=== PATIENT | male | born 1975 | race Caucasian/White ===

== ENCOUNTER 2016-09-10 19:47 | Emergency (ER) | payer SELFPAY ==
[2016-09-10 20:02] VITALS: BP 124/90
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
--- NOTE | 2016-09-11 07:36 | CR ---
Cervical spine: AP, lateral and odontoid views of the cervical spine were obtained. Slight kyphosis is seen. Minimal disc space narrowing noted at C3-C4. Other disc spaces are maintained. Minimal degenerative spurring noted within the uncovertebral joint on the right side at C5-C6. No fracture or subluxation is seen. Impression: 1. Minimal degenerative change. 2. Slight kyphosis and mild spasm is not excluded. Diagnostic code #2
== END 2016-09-10 21:10 | disposition home or self-care (01) ==
LOC: JD.ED 19:47
DX: M46.92 Unspecified inflammatory spondylopathy, cervical region (principal); F17.210 Nicotine dependence, cigarettes, uncomplicated; Z98.890 Other specified postprocedural states; Z88.6 Allergy status to analgesic agent
CPT/HCPCS: 72040; 72040-26; 99283

== ENCOUNTER 2017-10-19 10:24 | Emergency (ER) | payer SELFPAY ==
[2017-10-19 10:52] VITALS: BP 119/104
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
[2017-10-19] MEDS ORDERED: Distilled Water Ophth Irrig Soln 120 ML Bottle EYEBOTH ONE (11:29)
[2017-10-19] MEDS ORDERED: Hypromellose 0.5% Ophth Soln 15 ML Bottle EYEBOTH PRN (11:30)
--- NOTE | 2017-10-19 11:56 | CR ---
Chest: Two views of the chest were obtained. Comparison: No prior chest x-ray. Heart size and mediastinum are normal. Nodule identified within the upper right lung which is believed to be calcified compatible with granuloma. Lungs otherwise are clear. Bony structures are unremarkable. Impression: 1. Nothing acute is appreciated on two-view chest x-ray. Diagnostic code #2
--- NOTE | 2017-10-19 11:56 | CR ---
Cervical spine: AP and lateral views of the cervical spine were obtained. Comparison: Prior cervical spine study of 09/10/16. Technologist's note: Patient very uncooperative. AP view is particularly less than optimal. Kyphosis is present within the cervical spine. Vertebral body heights and disc spaces are maintained. Prevertebral soft tissues are normal. No discrete fracture or subluxation is seen. Impression: 1. Kyphosis. This is seen on prior cervical spine exam and may represent spasm versus chronic change. 2. No additional abnormality is seen on this slightly limited study. Diagnostic code #2
[2017-10-19] MEDS ORDERED: Ibuprofen 800 MG Tab PO ONE (11:58)
[2017-10-19] MEDS ORDERED: Ciprofloxacin 0.3% Ophth Soln 2.5 ML Bottle EYEBOTH SCH (13:00)
== END 2017-10-19 13:30 | disposition home or self-care (01) ==
LOC: JD.ED 10:24
DX: H10.33 Unspecified acute conjunctivitis, bilateral (principal); E03.9 Hypothyroidism, unspecified; M62.838 Other muscle spasm; F17.210 Nicotine dependence, cigarettes, uncomplicated; Z88.6 Allergy status to analgesic agent; Z88.8 Allergy status to other drugs, medicaments and biological substances
CPT/HCPCS: 36415; 71046; 72040; 80053; 80306; 81001; 83735; 84443; 85025; 99283; A9270; G0480

== ENCOUNTER 2018-03-03 22:17 | Emergency (ER) | payer SELFPAY ==
[2018-03-03 22:44] VITALS: BP 144/94
--- NOTE | 2018-03-04 00:28 | EDM.PDOC ---
ED HPI GENERAL MEDICAL PROBLEM - General Chief Complaint: Back Pain or Injury Stated Complaint: BACK PAIN Time Seen by Provider: 03/03/18 22:33 Source of Information: Reports: Patient History Limitations: Reports: No Limitations - History of Present Illness INITIAL COMMENTS - FREE TEXT/NARRATIVE: see dictation Onset: Unknown/Unsure Onset Time: 01:37 Duration: Week(s): Past Medical History - Past Health History Medical/Surgical History: Denies Medical/Surgical History - Infectious Disease History Infectious Disease History: Reports: Hepatitis C Social & Family History - Family History Family Medical History: Noncontributory - Tobacco Use Smoking Status *Q: Current Some Day Smoker Years of Tobacco use: 25 Packs/Tins Daily: 0 - Recreational Drug Use Recreational Drug Use: No ED ROS GENERAL - Review of Systems Review Of Systems: See Below ED EXAM,LOWER BACK PAIN/INJURY - Physical Exam Exam: See Below Exam Limited By: No Limitations Course - Vital Signs Last Recorded V/S: Last Vital Signs Temp 36.6 C 03/03/18 22:37 Pulse 89 03/03/18 22:37 Resp 16 03/03/18 22:37 BP 144/94 H 03/03/18 22:37 Pulse Ox 100 03/03/18 22:37 Departure - Departure Time of Disposition: 00:27 Disposition: Home, Self-Care 01 Condition: Good - Discharge Information *PRESCRIPTION DRUG MONITORING PROGRAM REVIEWED*: No *COPY OF PRESCRIPTION DRUG MONITORING REPORT IN PATIENT MARISSA: No Instructions: Cervical Sprain, [id number] Referrals: PCP,None [Primary Care Provider] - Forms: ED Department Discharge Additional Instructions: Followup with primary care provider
--- NOTE | 2018-03-04 08:37 | CR ---
Cervical spine: AP, lateral and odontoid views of the cervical spine were obtained. Comparison: No previous study. Vertebral body heights and disc spaces are maintained. Slightly abnormal cervical curvature is seen on the lateral view. Prevertebral soft tissues are normal. No subluxation or fracture is seen. Impression: 1. Slightly abnormal cervical curvature on the lateral view possibly due to muscle spasm. Please correlate. 2. No bony abnormality is seen on three-view cervical spine study. Diagnostic code #2
--- NOTE | 2018-03-05 07:30 | ER ---
REASON FOR ADMISSION: Back problems. HISTORY OF PRESENT ILLNESS: This 42-year-old man is a homeless gentleman, who has a history of psychiatric illness. Please see the electronic medical record for details concerning that. He comes in this evening, stating that he wants to get his back checked out because it has been popping every morning for the past 1 or 2 weeks. He referred that he had some densities around his kidneys and has soreness of his tailbone. He has a multitude of other complaints that do not seem to make a great deal of sense. In looking back on his chart, he has had a number of these sorts of things happen. He states he last saw a physician in August, but nurses tell me that he has a number of visits here recently. PAST MEDICAL HISTORY: See EMR. CURRENT MEDICATIONS: See EMR. ALLERGIES: See EMR. PHYSICAL EXAMINATION: GENERAL: He is awake and alert, and he is quite talkative. He is in no acute distress. VITAL SIGNS: See EMR. HEENT: He has a foul breath and quite poorly kept. Head is normocephalic. Pupils are equally round and reactive. Oropharynx, bad dentition. NECK: He has some limited range of motion to rotation as well as lateral flexion as well as flexion and extension. I did not force this, but he states that his neck has always been stiff like this. CHEST: Clear to auscultation. CARDIAC: Regular rate without murmur. ABDOMEN: Soft and nontender. EXTREMITIES: Normal pulses. No edema. BACK: He has some flattening of his cervical lordosis, but his thoracic kyphosis and lumbar lordosis appears normal. NEUROLOGIC: Muscle strength, bulk, and tone are normal bilaterally in the upper and lower extremities. Sensory examination is intact. Deep tendon reflexes are symmetrical. DIAGNOSTIC IMAGING: C-spine x-rays were obtained per the patient's request and because he has had comkplaints of neck stiffness, I do not see any evidence of acute injury, although he does have substantial arthritic changes and some straightening of his C- spine. There is evidence of possibly old injury or arthritic changes in the region of C2 and C3. IMPRESSION: Back pain (see above). PLAN: He will be discharged. He was instructed to follow up with his primary care provider. All questions were answered. He did request a copy of his x-rays, and we are attempting to comply with this request. MMODAL /[id number] ERWIN
== END 2018-03-04 00:37 | disposition home or self-care (01) ==
LOC: MERGE 22:17 → JD.ED 22:17
DX: M54.9 Dorsalgia, unspecified (principal); F17.210 Nicotine dependence, cigarettes, uncomplicated
CPT/HCPCS: 72040; 72040-26; 99283

== ENCOUNTER 2018-04-13 20:32 | Emergency (ER) | payer SELFPAY ==
[2018-04-13 20:42] VITALS: BP 124/84
--- NOTE | 2018-04-13 22:25 | EDM.PDOCBH ---
ED HPI GENERAL MEDICAL PROBLEM - General Chief Complaint: Behavioral/Psych Stated Complaint: WELLNESS CHECK Time Seen by Provider: 04/13/18 22:24 - History of Present Illness INITIAL COMMENTS - FREE TEXT/NARRATIVE: 42-year-old male brought into the emergency department by police. Her graft This patient is well-known police he is homeless. The police for a routine traffic stop and the patient ran out to the police yelling somebody strangled him he quickly calmed down however they brought him in for evaluation. By the time he arrived to the emergency department he was acting insulin self he is somewhat delusional which is baseline for him he has no suicidal thoughts or homicidal thoughts. He does not think he needs an evaluation at this time we watched him for some time and his status is unchanged - Related Data Allergies Allergy/AdvReac Type Severity Reaction Status Date / Time acetaminophen Allergy Headache Verified 10/19/17 10:53 aspirin Allergy Paralysis Verified 10/19/17 10:53 Home Meds: Home Meds . [No Known Home Meds] 10/19/17 [History] Past Medical History - Past Health History Medical/Surgical History: Denies Medical/Surgical History HEENT History: Reports: Other (See Below) Other HEENT History: patient states he had a ruptured artery in his throat Respiratory History: Reports: Pneumonia, Recurrent Musculoskeletal History: Reports: Other (See Below) Other Musculoskeletal History: Knee & Tib fib fracture Psychiatric History: Reports: Hallucinations, Schizophrenia, Other (See Below) Other Psychiatric History: delusional Oncologic (Cancer) History: Reports: Other (See Below) Other Oncologic History: patient states that he is in remission for cancer. he states they did not tell him what type of cancer. - Infectious Disease History Infectious Disease History: Reports: Hepatitis C Other Infectious Disease History: patient is unsure if he has been exposed but states "I think I was." - Past Surgical History HEENT Surgical History: Reports: Tonsillectomy Social & Family History - Family History Family Medical History: Noncontributory - Tobacco Use Smoking Status *Q: Unknown Ever Smoked - Caffeine Use Caffeine Use: Reports: None Other Caffeine Use: seldom - Recreational Drug Use Recreational Drug Use: No ED ROS GENERAL - Review of Systems Review Of Systems: See Below Constitutional: Reports: No Symptoms HEENT: Reports: No Symptoms Respiratory: Reports: No Symptoms Cardiovascular: Reports: No Symptoms Endocrine: Reports: No Symptoms GI/Abdominal: Reports: No Symptoms : Reports: No Symptoms Musculoskeletal: Reports: No Symptoms Skin: Reports: No Symptoms Neurological: Reports: No Symptoms Psychiatric: Reports: Other (He is somewhat delusional and this is baseline for him). Denies: Homicidal Ideation, Mood Lability, Suicidal Ideation Hematologic/Lymphatic: Reports: No Symptoms Immunologic: Reports: No Symptoms ED EXAM, BEHAVIORAL HEALTH - Physical Exam Exam: See Below Exam Limited By: Other (He is cooperative not combative or threatening) General Appearance: Alert, No Apparent Distress Eye Exam: Bilateral Eye: Normal Inspection, PERRL Ears: Normal External Exam, Normal Canal, Hearing Grossly Normal, Normal TMs Nose: Normal Inspection, Normal Mucosa, No Blood Throat/Mouth: Normal Inspection, Normal Lips, Normal Gums, Normal Oropharynx, Normal Voice, No Airway Compromise Head: Atraumatic, Normocephalic Neck: Normal Inspection, Supple, Non-Tender, Full Range of Motion, Other (No evidence of any sort of trauma). No: Lymphadenopathy (L), Lymphadenopathy (R) Respiratory/Chest: No Respiratory Distress, Lungs Clear, Normal Breath Sounds, No Accessory Muscle Use, Chest Non-Tender Cardiovascular: Normal Peripheral Pulses, Regular Rate, Rhythm, No Edema, No Gallop, No JVD, No Murmur, No Rub GI/Abdominal: Normal Bowel Sounds, Soft, Non-Tender, No Organomegaly, No Distention, No Abnormal Bruit, No Mass COURSE, BEHAVIORAL HEALTH COMP - Course Vital Signs: Last Vital Signs Temp Pulse 112 H 04/13/18 20:38 Resp 18 04/13/18 20:38 BP 124/84 04/13/18 20:38 Pulse Ox 100 04/13/18 20:38 Orders, Labs, Meds: Active Orders 24 hr Category Date Time Status EKG Documentation Completion [RC] STAT Care 04/13/18 22:41 Inactive Soft Tissue Neck wo Cont [CT] Stat Exams 04/13/18 22:40 Taken Laboratory Tests 04/13/18 Range/Units 22:50 Urine Opiates Screen Negative (NEGATIVE) Ur Buprenorphine Scrn Negative (NEGATIVE) Ur Oxycodone Screen Negative (NEGATIVE) Urine Methadone Screen Negative (NEGATIVE) Ur Propoxyphene Screen Negative (NEGATIVE) Ur Barbiturates Screen Negative (NEGATIVE) Ur Tricyclics Screen Negative (NEGATIVE) Ur Phencyclidine Scrn Negative (NEGATIVE) Ur Amphetamine Screen Negative (NEGATIVE) U Methamphetamines Scrn Negative (NEGATIVE) U Benzodiazepines Scrn Negative (NEGATIVE) U Cocaine Metab Screen Negative (NEGATIVE) U Marijuana (THC) Screen Negative (NEGATIVE) Medications Discontinued Medications Generic Name Dose Route Start Last Admin Trade Name Shon PRN Reason Stop Dose Admin Ibuprofen 600 mg 04/13/18 23:21 04/13/18 23:25 Motrin PO 04/13/18 23:22 600 mg ONETIME ONE Administration Discharge vs Psych Eval/Treatment:: 04/13/18 23:32 The patient was observed for a while and he is stable and at baseline he's known very well to the ER staff and he is his normal self he is known very well to the superintendent police and he is at his baseline he will be discharged home. The superintendent police brought him and will be able to check on him periodically through the night. Departure - Departure Time of Disposition: 23:32 Disposition: Home, Self-Care 01 Clinical Impression: Well adult health check - Discharge Information Referrals: PCP,None [Primary Care Provider] - Forms: ED Department Discharge Additional Instructions: Return to emergency room if any questions problems worsening symptoms - My Orders Last 24 Hours: My Active Orders 04/13/18 22:40 Soft Tissue Neck wo Cont [CT] Stat 04/13/18 22:41 EKG Documentation Completion [RC] STAT - Assessment/Plan Last 24 Hours: My Active Orders 04/13/18 22:40 Soft Tissue Neck wo Cont [CT] Stat 04/13/18 22:41 EKG Documentation Completion [RC] STAT
[2018-04-13] MEDS ORDERED: Ibuprofen 600 MG Tab PO ONE (23:21)
--- NOTE | 2018-04-15 08:45 | CT ---
CT neck Technique: Multiple axial sections were obtained from above the external auditory canals inferiorly to the lung apices. Motion artifact is seen. No intravenous contrast was utilized which diminishes details of the exam. Comparison: No previous CT exam. Findings: Visualized lung bases show no gross abnormality. No adenopathy is appreciated within the neck. Visualized sinuses are clear. Parotid and submandibular salivary glands show no gross abnormality. Bone window settings were reviewed which show kyphosis within the cervical spine which is likely positional. Abnormal alignment of the temporomandibular joints is seen. No acute bony abnormality is appreciated. Impression: 1. Widened left temporomandibular joint with mild anterior translation of the left mandibular condyle with normal alignment of the right temporomandibular joint. Uncertain as to etiology but presumably incidental and due to old mandibular trauma or positioning of the mandible. 2. No other gross abnormality is seen on CT study of the neck. Note: Details are limited due to motion as well as lack of IV contrast. Diagnostic code #2 I agree with preliminary report issued by [facility], additional note which is felt to be incidental as noted above ([facility] preliminary report dictated on 04/14/18, 1:06 AM Central Time) (code #2)
== END 2018-04-13 23:38 | disposition home or self-care (01) ==
LOC: JD.ED 20:32
DX: Z00.01 Encounter for general adult medical examination with abnormal findings (principal); F22 Delusional disorders; Z88.6 Allergy status to analgesic agent
CPT/HCPCS: 70490; 80306; 99285; A9270; 99283

== ENCOUNTER 2018-08-04 00:10 | Emergency (ER) | payer OTHER, SELFPAY ==
[2018-08-04 00:18] VITALS: BP 141/93
--- NOTE | 2018-08-04 01:09 | EDM.PDOC ---
ED HPI GENERAL MEDICAL PROBLEM - General Chief Complaint: ENT Problem Stated Complaint: THROAT PROBLEMS Time Seen by Provider: 08/04/18 00:38 Source of Information: Reports: Patient History Limitations: Reports: Altered Mental Status - History of Present Illness INITIAL COMMENTS - FREE TEXT/NARRATIVE: This is a 42-year-old male. He comes here because he is having a popping sensation in his neck and ringing in his ears. He is fairly well known to this area as being homeless and probably schizophrenic with some delusional ideation. When he talks to me he does not make sense. He does talk about popping but that he's got an ear depth about the size of the fingernail in the left side. He is also left-handed so there is no way in this world he can have arthritis, left hand or don't get arthritis. He says he had a throat CAT scan just a couple of months ago but I see no record in [facility] that he's had a throat CT scan. He talks with no difficulty he does not appear to be in mean any great distress. When I asked him if he needs a place to stay he says no when asked him if he wants something to eat he says no. He smells like campfire. Throat Pain Score (Numeric/FACES): 3 - Related Data Allergies Allergy/AdvReac Type Severity Reaction Status Date / Time aspirin Allergy Paralysis Verified 05/20/18 12:00 Home Meds: Home Meds . [No Known Home Meds] 04/25/18 [History] Past Medical History - Past Health History Medical/Surgical History: Denies Medical/Surgical History HEENT History: Reports: Other (See Below) Other HEENT History: patient states he had a ruptured artery in his throat Respiratory History: Reports: Pneumonia, Recurrent Musculoskeletal History: Reports: Other (See Below) Other Musculoskeletal History: Knee & Tib fib fracture Psychiatric History: Reports: Hallucinations, Schizophrenia Other Psychiatric History: delusional Oncologic (Cancer) History: Reports: Other (See Below) Other Oncologic History: patient states that he is in remission for cancer. he states they did not tell him what type of cancer. - Infectious Disease History Infectious Disease History: Reports: Hepatitis C Other Infectious Disease History: patient is unsure if he has been exposed but states "I think I was." - Past Surgical History HEENT Surgical History: Reports: Tonsillectomy Other Musculoskeletal Surgeries/Procedures:: states multiple surgeries on legs and knees Social & Family History - Family History Family Medical History: Noncontributory - Tobacco Use Smoking Status *Q: Light Tobacco Smoker Years of Tobacco use: 30 Packs/Tins Daily: 0.5 - Caffeine Use Caffeine Use: Reports: Coffee, Soda Other Caffeine Use: seldom ED ROS ENT - Review of Systems Review Of Systems: Unable To Obtain (I'm not really able to get a review of system from him other than his neck pops in his jaw pops and he's got cartilage hanging down from his mouth, and that he wants his neck fixed and the washers between the bones or soft and he has a purple rachid in his back so he can have arthritis.) ED EXAM, ENT - Physical Exam Exam: See Below Exam Limited By: Other (Patient is very unkempt and smells of campfire) General Appearance: Alert, WD/WN, No Apparent Distress Eye Exam: Bilateral Eye: Normal Inspection Ears: Normal External Exam, Normal Canal, Normal TMs Nose: Normal Inspection Mouth/Throat: Other (Teeth in poor repair, throat appears to be normal, I do not see any cartilage hanging down from the top of his mouth) Head: Normocephalic Neck: Other (Patient is not willing for me to palpate his neck or his TMJ, yet he says they pop all the time) Respiratory/Chest: Other (Patient is not willing to let me listen to his heart or his lungs) Back: Other (He seems to move freely) Extremities: Other (He moves his arms and legs with no difficulty and walked into the ER) Neurological: Alert, Other (He seems to have flight of ideas, he uses words that I am just not familiar with) Psychiatric: Other (He has a flat affect and he is not belligerent but he does appear to be uncooperative with the examination) Skin: Warm Course - Vital Signs Last Recorded V/S: Last Vital Signs Temp 96.9 F 08/04/18 00:14 Pulse 103 H 08/04/18 00:14 Resp 17 08/04/18 00:14 BP 141/93 H 08/04/18 00:14 Pulse Ox 96 08/04/18 00:14 - Re-Assessments/Exams Free Text/Narrative Re-Assessment/Exam: 08/04/18 01:33 I reviewed the patient's charts and x-rays that he's had here at [facility] and there is no record of him ever having a CT of his throat and neck. She has had an x-ray back in September 2016 that showed some degenerative changes and his last blood work was October 2017 suggested he is low on thyroid. When I talk to the patient about this he insists that about 2 months ago he had a CT scan here but I can't seem to find a record. He suggested that perhaps I was not smart and that if I was his physician then it be a good idea for me to get neck x- rays and also blood work now. He says that he has a chemical that's abnormal in his blood work that is concerning for him and he wants blood work done. I explained to him that I did not see any indication that he needed x-ray of his neck or that he needed blood work done. He suggested to his friend in the room noted be a good idea if I went ahead and got the x-ray since his neck was popping and he had cartilage in the back of his neck that was sticking out and he had inflammation of the spinal cord. I told him that perhaps he needed to come when there was a different physician here since I did not feel this was needful this time and that perhaps another physician would. He stated that the other physician he saw wouldn't do the x-rays either. Then he indicated that I had to get blood work because usually concerned about this chemical and I said I thought it was thyroid but he says no one was in thyroid was a chemical that was dangerous and he needed to know what was. When I said perhaps this was done down at [place] and not here since I have no record of it he said no it was done here but it was confirmed in [place] and then I came back here and was confirmed again. At that point time I suggested he come back tomorrow when there is a new physician and perhaps they could help him. 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 He then said about giving me his FBI number of [phone]. After that I left the room and he grabbed his coat and he walked out of the room mumbling saying that it be receiving call and that my job was only for another 4 years and if I was a license physician no longer be needed here. He did not cause any trouble walking out to the lobby and then I watched him go through the double doors to the outside. Departure - Departure Time of Disposition: 01:39 Disposition: Home, Self-Care 01 Condition: Poor Clinical Impression: Cervical arthritis, TMJ arthropathy Schizophrenia Qualifiers: Schizophrenia type: paranoid schizophrenia Qualified Code(s): F20.0 - Paranoid schizophrenia - Discharge Information *PRESCRIPTION DRUG MONITORING PROGRAM REVIEWED*: Not Applicable *COPY OF PRESCRIPTION DRUG MONITORING REPORT IN PATIENT MARISSA: Not Applicable Referrals: PCP,None [Primary Care Provider] - Forms: ED Department Discharge Additional Instructions: Please feel free to return to the ER as needed, please note that I reviewed your records that are found in the ER database and I found no record of any chemical that was abnormal other than your thyroid, I did not find a CAT scan of your neck though your x-ray of your neck from September 2016 suggested some arthritic changes or degenerative changes, if you feel you need further workup please return at a later date since I do not feel at this time that you need an additional x-ray or blood work based upon my review of your records and listening to your history and chief complaint.
== END 2018-08-04 01:32 | disposition home or self-care (01) ==
LOC: JD.ED 00:10
DX: M46.92 Unspecified inflammatory spondylopathy, cervical region (principal); M26.69 Other specified disorders of temporomandibular joint; F20.0 Paranoid schizophrenia; F17.210 Nicotine dependence, cigarettes, uncomplicated; Z98.890 Other specified postprocedural states; Z88.6 Allergy status to analgesic agent
CPT/HCPCS: 99282

== ENCOUNTER 2018-12-05 18:39 | Emergency (ER) | payer SELFPAY ==
[2018-12-05 18:54] VITALS: BP 142/102
--- NOTE | 2018-12-05 19:41 | EDM.PDOC ---
ED HPI GENERAL MEDICAL PROBLEM - General Chief Complaint: General Stated Complaint: HEAD NECK RIBS POPPING JAW IS LIKE RUBBER Time Seen by Provider: 12/05/18 19:09 Source of Information: Reports: Patient, RN Notes Reviewed History Limitations: Reports: Altered Mental Status (Tangential thinking. Suspicious.) - History of Present Illness INITIAL COMMENTS - FREE TEXT/NARRATIVE: The patient states that he has had pain to his head and neck for a few weeks, and that he feels a popping sensation in the back of his head, his ribs, and jaw. He also states that his jaw and ears feel rubbery. It is unclear if there is a history of trauma, but it is doubtful. The patient has tangential speech with derailment, jumping from subject to subject within the same sentence. The patient has a known history of schizophrenia, and it would appear that his symptoms are not well controlled. He is disheveled, and I suspect that he is not currently on any medication. The patient is suspicious, and is reluctant to answer any questions. The patient does not have a PCP. Head Pain Score (Numeric/FACES): 2 - Related Data Allergies Allergy/AdvReac Type Severity Reaction Status Date / Time aspirin Allergy Paralysis Verified 12/05/18 18:52 Home Meds: Home Meds . [No Known Home Meds] 04/25/18 [History] Past Medical History Musculoskeletal History: Reports: Fracture (right tib/fib) Psychiatric History: Reports: Schizophrenia - Past Surgical History HEENT Surgical History: Reports: Tonsillectomy Musculoskeletal Surgical History: Reports: ORIF (right tib/fib fx) Social & Family History - Family History Family Medical History: Noncontributory - Tobacco Use Smoking Status *Q: Current Every Day Smoker Years of Tobacco use: 30 Packs/Tins Daily: 0.5 - Caffeine Use Caffeine Use: Reports: None Other Caffeine Use: seldom - Alcohol Use Alcohol Use History: Yes Alcohol Use Frequency: Rarely - Recreational Drug Use Recreational Drug Use: No - Living Situation & Occupation Living situation: Reports: Alone Occupation: Unemployed ED ROS GENERAL - Review of Systems Review Of Systems: ROS reveals no pertinent complaints other than HPI. ED EXAM, GENERAL - Physical Exam Exam: See Below Exam Limited By: Uncooperative (Pulls away with all attempts to examine) General Appearance: Alert, WD/WN, No Apparent Distress Eye Exam: Bilateral Eye: EOMI, Normal Inspection Ears: Normal External Exam, Normal Canal, Hearing Grossly Normal, Normal TMs Nose: Normal Inspection, Normal Mucosa, No Blood Throat/Mouth: Normal Inspection, Normal Lips, Normal Oropharynx, Normal Voice, No Airway Compromise Head: Atraumatic, Normocephalic Neck: Normal Inspection, Supple, Non-Tender, Full Range of Motion, Tender Lateral (muscle spasm on right posterior neck). No: Lymphadenopathy (L), Lymphadenopathy (R) Respiratory/Chest: No Respiratory Distress, Lungs Clear, Normal Breath Sounds, No Accessory Muscle Use Cardiovascular: Normal Peripheral Pulses, Regular Rate, Rhythm, No Edema, No Gallop, No JVD, No Murmur, No Rub Peripheral Pulses: 4+: Radial (L), Radial (R) GI/Abdominal: Normal Bowel Sounds, Soft, Non-Tender, No Organomegaly, No Distention, No Abnormal Bruit, No Mass (Male) Exam: Deferred Rectal (Males) Exam: Deferred Back Exam: Normal Inspection, Full Range of Motion, NT Extremities: Normal Inspection, Normal Range of Motion, No Pedal Edema, Normal Capillary Refill Neurological: Alert, No Motor/Sensory Deficits Psychiatric: Other (As per the HPI) Skin Exam: Warm, Dry, Intact, Normal Color, No Rash Course - Vital Signs Last Recorded V/S: Last Vital Signs Temp 36.4 C 12/05/18 18:49 Pulse 110 H 12/05/18 18:49 Resp 16 12/05/18 18:49 BP 142/102 H 12/05/18 18:49 Pulse Ox 97 12/05/18 18:49 - Re-Assessments/Exams Free Text/Narrative Re-Assessment/Exam: 12/05/18 19:37 The patient's complaints appear to be related to his untreated schizophrenia. The may have a muscle spasm to his posterior right neck, but I found no other abnormalities on physical exam. I offered to prescribe a muscle relaxant but the patient responded "I'll take a pass". I will refer him to a PCP who could order a MRI if they felt it was indicated. Departure - Departure Time of Disposition: 19:38 Disposition: Home, Self-Care 01 Condition: Good Clinical Impression: Neck pain - Discharge Information *PRESCRIPTION DRUG MONITORING PROGRAM REVIEWED*: Not Applicable *COPY OF PRESCRIPTION DRUG MONITORING REPORT IN PATIENT MARISSA: Not Applicable Instructions: Musculoskeletal Pain Referrals: PCP,None [Primary Care Provider] - Barbara Hall MD [Physician] - Forms: ED Department Discharge Additional Instructions: You were seen in the emergency room for pain to your head and neck with a popping sensation in the back of your head, ribs, and jaw, along with your jaw and ears feeling rubbery, for the past several weeks. Based on your history and physical examination, you may have a muscle spasm in the back of your neck. No other abnormalities were found on physical exam. An offer of starting you on a muscle relaxant was made, but declined. We recommend that you follow-up with Dr. Barbara Hall is a primary care physician, for further evaluation. If any other problems, please do not hesitate to return to the ER.
== END 2018-12-05 19:47 | disposition home or self-care (01) ==
LOC: JD.ED 18:39
DX: M54.2 Cervicalgia (principal); F17.210 Nicotine dependence, cigarettes, uncomplicated; Z88.6 Allergy status to analgesic agent
CPT/HCPCS: 99282; 99283

== ENCOUNTER 2019-10-02 17:29 | Emergency (ER) | payer SELFPAY ==
[2019-10-02 17:39] VITALS: BP 165/89; PULSE 93
--- NOTE | 2019-10-02 18:07 | EDM.PDOC ---
ED HPI GENERAL MEDICAL PROBLEM - General Chief Complaint: General Stated Complaint: CHEST/BACK PAIN Time Seen by Provider: 10/02/19 17:36 Source of Information: Reports: Patient History Limitations: Reports: No Limitations - History of Present Illness INITIAL COMMENTS - FREE TEXT/NARRATIVE: The patient presents with chest pain. This has been going on for a few days. The pain comes and goes. He has no fever, chills, cough, abdominal pain, nausea or vomiting. He does say that his stomach was growling a few times these past few days. He also has some jaw pain and he has known TMJ. Onset: Gradual Duration: Day(s): Location: Reports: Chest Quality: Reports: Burning Severity: Mild Improves with: Reports: None Worsens with: Reports: None Associated Symptoms: Reports: Chest Pain. Denies: Confusion, Cough, Fever/ Chills, Headaches, Nausea/Vomiting, Shortness of Breath - Related Data Allergies Allergy/AdvReac Type Severity Reaction Status Date / Time aspirin Allergy Paralysis Verified 10/02/19 17:39 Home Meds: Home Meds . [No Known Home Meds] 04/25/18 [History] Past Medical History - Past Health History Medical/Surgical History: Denies Medical/Surgical History HEENT History: Reports: Other (See Below) Other HEENT History: patient states he had a ruptured artery in his throat Cardiovascular History: Reports: None Respiratory History: Reports: Pneumonia, Recurrent Gastrointestinal History: Reports: None Genitourinary History: Reports: None Musculoskeletal History: Reports: Back Pain, Chronic, Fracture, Other (See Below ) Other Musculoskeletal History: Neck Fx Neurological History: Reports: Cerebral Aneurysms, Other (See Below) Psychiatric History: Reports: Schizophrenia Other Psychiatric History: delusional Endocrine/Metabolic History: Reports: None Hematologic History: Reports: None Immunologic History: Reports: None Oncologic (Cancer) History: Reports: Other (See Below) Other Oncologic History: patient states that he is in remission for cancer. he states they did not tell him what type of cancer. Dermatologic History: Reports: None - Infectious Disease History Infectious Disease History: Reports: Hepatitis C Other Infectious Disease History: patient is unsure if he has been exposed but states "I think I was." - Past Surgical History HEENT Surgical History: Reports: Tonsillectomy Musculoskeletal Surgical History: Reports: Arthroscopic Knee, ORIF Social & Family History - Family History Family Medical History: Noncontributory - Tobacco Use Smoking Status *Q: Current Every Day Smoker Years of Tobacco use: 25 Packs/Tins Daily: 0.5 - Caffeine Use Caffeine Use: Reports: Soda Other Caffeine Use: seldom - Recreational Drug Use Recreational Drug Use: No - Living Situation & Occupation Living situation: Reports: Alone (Homeless) Occupation: Unemployed ED ROS GENERAL - Review of Systems Review Of Systems: See Below Constitutional: Reports: No Symptoms HEENT: Reports: Other (right jaw pain) Respiratory: Reports: No Symptoms Cardiovascular: Reports: Chest Pain Endocrine: Reports: No Symptoms GI/Abdominal: Reports: No Symptoms : Reports: No Symptoms Musculoskeletal: Reports: No Symptoms ED EXAM, GENERAL - Physical Exam Exam: See Below Exam Limited By: No Limitations General Appearance: Alert, No Apparent Distress, Other (The patient smells strongly of camfire) Ears: Normal External Exam Nose: Normal Inspection Head: Atraumatic, Normocephalic Neck: Normal Inspection Respiratory/Chest: No Respiratory Distress, Lungs Clear, Normal Breath Sounds Cardiovascular: Regular Rate, Rhythm, No Edema, No Murmur GI/Abdominal: Soft, Non-Tender, No Organomegaly, No Mass Back Exam: Normal Inspection Extremities: Normal Inspection Neurological: Alert, Oriented, No Motor/Sensory Deficits Course - Vital Signs Last Recorded V/S: Last Vital Signs Temp 97.9 F 10/02/19 17:35 Pulse 93 10/02/19 17:35 Resp 16 10/02/19 17:35 BP 165/89 H 10/02/19 17:35 Pulse Ox 96 10/02/19 17:35 - Orders/Labs/Meds Orders: Active Orders 24 hr Category Date Time Status EKG Documentation Completion [RC] ASDIRECTED Care 10/02/19 17:55 Active Ibuprofen [Motrin] Med 10/02/19 18:52 Once 600 mg PO ONETIME ONE EKG 12 Lead [EK] Stat Ther 10/02/19 17:55 Ordered Medication Orders Ibuprofen (Motrin) 600 mg PO ONETIME ONE Stop: 10/02/19 18:53 Meds: Medications Generic Name Dose Route Start Last Admin Trade Name Freq PRN Reason Stop Dose Admin Ibuprofen 600 mg 10/02/19 18:52 Motrin PO 10/02/19 18:53 ONETIME ONE - Re-Assessments/Exams Free Text/Narrative Re-Assessment/Exam: 10/02/19 18:07 I have ordered an EKG. Departure - Departure Time of Disposition: 18:55 Disposition: Home, Self-Care 01 Condition: Good Clinical Impression: TMJ (temporomandibular joint syndrome), Atypical chest pain - Discharge Information *PRESCRIPTION DRUG MONITORING PROGRAM REVIEWED*: Not Applicable *COPY OF PRESCRIPTION DRUG MONITORING REPORT IN PATIENT MARISSA: Not Applicable Referrals: PCP,None [Primary Care Provider] - Forms: ED Department Discharge Additional Instructions: Follow up with a dentist for the TMJ. Take motrin or tylenol for the pain. Please return if you are worse. Sepsis Event Note - Evaluation Sepsis Screening Result: No Definite Risk - Focused Exam Vital Signs: Vital Signs Temp Pulse Resp BP Pulse Ox 10/02/19 17:35 97.9 F 93 16 165/89 H 96 Date Exam was Performed: 10/02/19 Time Exam was Performed: 18:53 - My Orders Last 24 Hours: My Active Orders 10/02/19 17:55 EKG Documentation Completion [RC] ASDIRECTED EKG 12 Lead [EK] Stat 10/02/19 18:52 Ibuprofen [Motrin] 600 mg PO ONETIME ONE - Assessment/Plan Last 24 Hours: My Active Orders 10/02/19 17:55 EKG Documentation Completion [RC] ASDIRECTED EKG 12 Lead [EK] Stat 10/02/19 18:52 Ibuprofen [Motrin] 600 mg PO ONETIME ONE
[2019-10-02] MEDS ORDERED: Ibuprofen 600 MG Tab PO ONE (18:52)
== END 2019-10-02 19:10 | disposition home or self-care (01) ==
LOC: JD.ED 17:29
DX: R07.89 Other chest pain (principal); M26.629 Arthralgia of temporomandibular joint, unspecified side; F17.210 Nicotine dependence, cigarettes, uncomplicated
CPT/HCPCS: 93005; 99284; A9270; 93010; 99283

== ENCOUNTER 2019-10-05 19:24 | Emergency (ER) | payer SELFPAY ==
[2019-10-05 19:41] VITALS: BP 144/95; PULSE 96
--- NOTE | 2019-10-05 19:41 | EDM.PDOC ---
ED HPI GENERAL MEDICAL PROBLEM - General Chief Complaint: ENT Problem Stated Complaint: neck jaw and head pain Time Seen by Provider: 10/05/19 19:41 - History of Present Illness INITIAL COMMENTS - FREE TEXT/NARRATIVE: 43-year-old male presents the emergency room with right upper dental pain. He had a tooth fall apart he has had a lot of drainage out of the area since then. This occurred yesterday. Patient is having problems with bad teeth. Patient denies any other complaints at this time he is not having any breathing difficulty shortness of breath no nausea or vomiting. He is not aware of any fevers or chills. Jaw Pain Score (Numeric/FACES): 8 - Related Data Allergies Allergy/AdvReac Type Severity Reaction Status Date / Time aspirin Allergy Paralysis Verified 10/05/19 19:41 Home Meds: Home Meds Amoxicillin 500 mg PO Q8H #30 tablet 10/05/19 [Rx] Past Medical History - Past Health History Medical/Surgical History: Denies Medical/Surgical History HEENT History: Reports: Other (See Below) Other HEENT History: patient states he had a ruptured artery in his throat Cardiovascular History: Reports: None Respiratory History: Reports: Pneumonia, Recurrent Gastrointestinal History: Reports: None Genitourinary History: Reports: None Musculoskeletal History: Reports: Back Pain, Chronic, Fracture, Other (See Below ) Other Musculoskeletal History: Neck Fx Neurological History: Reports: Cerebral Aneurysms, Other (See Below) Psychiatric History: Reports: Schizophrenia Other Psychiatric History: delusional Endocrine/Metabolic History: Reports: None Hematologic History: Reports: None Immunologic History: Reports: None Oncologic (Cancer) History: Reports: Other (See Below) Other Oncologic History: patient states that he is in remission for cancer. he states they did not tell him what type of cancer. Dermatologic History: Reports: None - Infectious Disease History Infectious Disease History: Reports: Hepatitis C Other Infectious Disease History: patient is unsure if he has been exposed but states "I think I was." - Past Surgical History HEENT Surgical History: Reports: Tonsillectomy Musculoskeletal Surgical History: Reports: Arthroscopic Knee, ORIF Social & Family History - Family History Family Medical History: Noncontributory - Caffeine Use Caffeine Use: Reports: Soda Other Caffeine Use: seldom - Living Situation & Occupation Living situation: Reports: Alone (Homeless) Occupation: Unemployed ED ROS ENT - Review of Systems Review Of Systems: See Below Constitutional: Reports: No Symptoms. Denies: Fever, Chills HEENT: Reports: Dental Pain Respiratory: Reports: No Symptoms Cardiovascular: Reports: No Symptoms GI/Abdominal: Reports: No Symptoms ED EXAM, ENT - Physical Exam Exam: See Below Exam Limited By: No Limitations General Appearance: Alert, No Apparent Distress Eye Exam: Bilateral Eye: Normal Inspection Ears: Normal External Exam Nose: Normal Inspection, Normal Mucousa Mouth/Throat: Normal Lips, Normal Oropharynx, Dental Abcess (Right upper gumline is erythematous with some drainage nothing practical to drain at this time.), Dental Pain Head: Atraumatic, Normocephalic Neck: Normal Inspection, Supple, Non-Tender, Full Range of Motion. No: Lymphadenopathy (L), Lymphadenopathy (R) Respiratory/Chest: No Respiratory Distress, Lungs Clear, Normal Breath Sounds Cardiovascular: Regular Rate, Rhythm, No Edema, No Murmur Course - Vital Signs Last Recorded V/S: Last Vital Signs Temp 36.8 C 10/05/19 19:37 Pulse 96 10/05/19 19:37 Resp 19 10/05/19 19:37 BP 144/95 H 10/05/19 19:37 Pulse Ox 95 10/05/19 19:37 Departure - Departure Time of Disposition: 20:08 Disposition: Home, Self-Care 01 Clinical Impression: Dental infection - Discharge Information Referrals: PCP,None [Primary Care Provider] - Forms: ED Department Discharge Additional Instructions: Return to the emergency room with any questions problems or worsening symptoms. Take the antibiotics, the amoxicillin 1 tablet every 8 hours until all gone. salon supervisor some [id number] ibuprofen intake 2-3 3 times daily with food. Follow-up with a dentist as soon as you can Sepsis Event Note - Evaluation Sepsis Screening Result: Possible Sepsis Risk - Focused Exam Vital Signs: Vital Signs Temp Pulse Resp BP Pulse Ox 10/05/19 19:37 36.8 C 96 19 144/95 H 95 Date Exam was Performed: 10/05/19 Time Exam was Performed: 20:03
[2019-10-05] MEDS ORDERED: Ibuprofen 600 MG Tab PO ONE (20:04)
[2019-10-05] MEDS ORDERED: Amoxicillin 500 MG Cap PO ONE (20:04)
== END 2019-10-05 20:21 | disposition home or self-care (01) ==
LOC: JD.ED 19:24
DX: K04.7 Periapical abscess without sinus (principal); Z88.6 Allergy status to analgesic agent
CPT/HCPCS: 99282; A9270

== ENCOUNTER 2019-10-09 21:01 | Emergency (ER) | payer SELFPAY ==
[2019-10-09 22:17] VITALS: BP 145/95; PULSE 74
--- NOTE | 2019-10-09 23:01 | EDM.PDOC ---
ED HPI GENERAL MEDICAL PROBLEM - General Chief Complaint: ENT Problem Time Seen by Provider: 10/09/19 22:40 Source of Information: Reports: Patient History Limitations: Reports: Uncooperative (Tangential thinking and argumentative) - History of Present Illness INITIAL COMMENTS - FREE TEXT/NARRATIVE: Mr. Van is a 43-year-old male with a past medical history significant for untreated schizophrenia. He has been evaluated in this ED on numerous occasions , usually for the same complaint of his neck popping when he turns his head. Sometimes he feels it on the left, sometimes on the right. Medical records indicate that he was seen in this ED most recently for that complaint on 2019, and diagnosed with TMJ. He was then seen again in this ED on 10/05/2019, this time complaining of upper right dental pain. He was prescribed amoxicillin , and instructed to take [id number] ibuprofen and follow-up with a dentist. The patient now returns to the ED stating that he continues to have upper right dental pain, but that the pain extends to most of the right side of his face, and back to the right side of his neck. He states that he has already "burned through" 50 ibuprofen since 10/05/2019. He was vague about whether or not he is taking the antibiotic that was prescribed. He states that he will be able to make an appointment to see a dentist tomorrow, 10/10/2019. Here in the ED, the patient is found to be mildly hypertensive, otherwise hemodynamically stable, afebrile, saturating 96 to 99% on room air. The patient does not have a PCP. Right Jaw Pain Score (Numeric/FACES): 7 - Related Data Allergies Allergy/AdvReac Type Severity Reaction Status Date / Time aspirin Allergy Paralysis Verified 10/05/19 19:41 Home Meds: Home Meds Amoxicillin 500 mg PO Q8H #30 tablet 10/05/19 [Rx] Past Medical History Musculoskeletal History: Reports: Fracture (right tib/fib) Psychiatric History: Reports: Schizophrenia (untreated) - Past Surgical History HEENT Surgical History: Reports: Tonsillectomy Musculoskeletal Surgical History: Reports: ORIF (right tib/fib) Social & Family History - Family History Family Medical History: Noncontributory - Tobacco Use Smoking Status *Q: Current Every Day Smoker Years of Tobacco use: 31 Packs/Tins Daily: 0.5 Packs/Tins Daily Comment: Down from 1 ppd - Caffeine Use Caffeine Use: Reports: Soda Other Caffeine Use: seldom - Alcohol Use Alcohol Use History: Yes Alcohol Use Frequency: Rarely - Recreational Drug Use Recreational Drug Use: Yes Drug Use in Last 12 Months: No Recreational Drug Type: Reports: Marijuana/Hashish (last smoked around 2001?), Methamphetamine (last smoked around 2003?) - Living Situation & Occupation Living situation: Reports: Single, Alone (Homeless) Occupation: Unemployed ED ROS ENT - Review of Systems Review Of Systems: Comprehensive ROS is negative, except as noted in HPI. ED EXAM, ENT - Physical Exam Exam: See Below Exam Limited By: Uncooperative (Only allowed me to look in his mouth briefly. Very suspicious.) General Appearance: Alert, No Apparent Distress, Thin Eye Exam: Bilateral Eye: EOMI, Normal Inspection Ears: Normal External Exam, Normal Canal, Hearing Grossly Normal, Normal TMs Nose: Normal Inspection, Normal Mucousa, No Blood Mouth/Throat: Normal Lips, Normal Oropharynx, Other (Numerous teeth missing. An upper right molar is severely decayed with associated gingival swelling. No pointing noted, but my exam was limited.) Head: Atraumatic, Normocephalic Neck: Normal Inspection, Supple, Non-Tender, Full Range of Motion. No: Lymphadenopathy (L), Lymphadenopathy (R) Course - Vital Signs Last Recorded V/S: Last Vital Signs Temp 36.1 C 10/09/19 22:07 Pulse 74 10/09/19 22:07 Resp 18 10/09/19 22:07 BP 145/95 H 10/09/19 22:07 Pulse Ox 96 10/09/19 22:07 - Re-Assessments/Exams Free Text/Narrative Re-Assessment/Exam: 10/09/19 22:56 As above, the patient is complaining of dental pain, but also pain around the right side of his mouth, and extending to the right side of his neck, which is a chronic complaint of his. On examination, he does appear to have a right upper molar with advanced decay. Given his history of schizophrenia, the patient's thoughts wander, but I tried to impress upon him the need for him to take the amoxicillin that was previously prescribed, as prescribed, and follow- up with a dentist. Departure - Departure Time of Disposition: 22:57 Disposition: Home, Self-Care 01 Condition: Good Clinical Impression: Dental infection - Discharge Information *PRESCRIPTION DRUG MONITORING PROGRAM REVIEWED*: Not Applicable *COPY OF PRESCRIPTION DRUG MONITORING REPORT IN PATIENT MARISSA: Not Applicable Instructions: Dental Abscess, [id number] Referrals: PCP,None [Primary Care Provider] - Forms: ED Department Discharge Additional Instructions: You were seen in the emergency room for continued upper right dental pain, with the pain extending to the right side of your face and neck. On examination, you appear to have significant decay of an upper right molar. We recommend that you continue to take the amoxicillin that was prescribed to you on 10/05/2019. We recommend that you limit your ibuprofen intake to no more than 3 tablets ( 600 mg) 3 8 hours, with food. We strongly recommend that you follow-up with a dentist at the next available appointment. If any other problems, please do not hesitate to return to the ER. Sepsis Event Note - Evaluation Sepsis Screening Result: No Definite Risk - Focused Exam Vital Signs: Vital Signs Temp Pulse Resp BP Pulse Ox 10/09/19 22:07 36.1 C 74 18 145/95 H 96 10/09/19 21:07 36.3 C 67 19 151/106 H 99 Date Exam was Performed: 10/10/19 Time Exam was Performed: 02:16
== END 2019-10-09 23:13 | disposition home or self-care (01) ==
LOC: JD.ED 21:01
DX: K04.7 Periapical abscess without sinus (principal)
CPT/HCPCS: 99283

== ENCOUNTER 2019-10-10 04:43 | Emergency (ER) | payer SELFPAY ==
[2019-10-10 04:45] VITALS: BP 164/94; PULSE 90
--- NOTE | 2019-10-10 04:57 | EDM.PDOC ---
ED HPI GENERAL MEDICAL PROBLEM - General Chief Complaint: ENT Problem Stated Complaint: [facility] Time Seen by Provider: 10/10/19 04:43 Source of Information: Reports: Patient, Old Records (ED visit 10/09/2019) History Limitations: Reports: Uncooperative (Argumentative, tangential thinking) - History of Present Illness INITIAL COMMENTS - FREE TEXT/NARRATIVE: Mr. Van is a 43-year-old man with a past medical history significant for untreated schizophrenia. He has been evaluated in this ED on numerous occasions , usually for the same complaint of his neck popping when he turns his head. Sometimes he feels on the left, sometimes on the right. Medical records indicate that he was seen in this ED most recently for that complaint on 2019, and diagnosed with TMJ. He was then seen again in this ED on 10/05/2019, this time complaining of upper right dental pain. He was prescribed amoxicillin , and instructed to take [id number] ibuprofen and follow-up with a dentist. The patient then returned to this ED just last night, 10/09/2019, complaining of continued upper right dental pain, but that the pain extended to most of the right side of his face and back to the right side of his neck. He reported that he had already "burned through" 50 ibuprofen since 10/05/2019. He was vague about whether or not he was taking the antibiotic that was prescribed. He reported that he would be able to make an appointment to see a dentist sometime today, 10/10/2019. The evaluation was difficult. The patient was evasive, with tangential and delusional thinking, and he was argumentative. He only allowed me to look into his mouth for a few seconds, before turning his head away. In that time, however, I was able to see that the patient has generally poor dentition with numerous teeth missing, and a severely carious upper right molar with associated gingival swelling. The patient had me feel the lateral aspect of his right mandible, and shifted his mandible left and right. He felt that there was "half an inch" of motion, whereas in fact the amount of lateral motion of his mandible appeared to be normal, from my perspective. There was slight clicking, suggesting that he might have TMJ, as diagnosed on 10/02/2019. That being a chronic problem, however, I was unable to address it. There was no submandibular lymphadenopathy, but the patient did not allow me to examine his neck. I recommended that he continue to take the antibiotic that was already prescribed, judicious ibuprofen, and follow-up with a dentist at the next available appointment. I am now told that the patient left the ED without waiting for his discharge instructions. The patient now returns to the ED by EMS with the exact same claim as earlier, stating that he returned home (the patient is allowed to sleep at the group home), that he took 1.5 tablets of ibuprofen, slept for a few hours, then woke up in some sort of a mental fog. He states that he walked around for about an hour before deciding that he needed to return to the ED because his symptoms were in some way different. Here in the ED, the patient's initial BP is found to be elevated at 164/94, otherwise, he is hemodynamically stable, afebrile, saturating 99% on room air. Acquiring a history from the patient is exceedingly difficult. He is argumentative, with delusional thinking including believing that our medical records represent software that is inside of him that we can activate, and that he works for the [employer]. The conversation was repeatedly tangential, including that he wanted me to give him my medical license and NIA number. Ultimately, he stated that the only reason why he returned is because he wants pain medicine , such as ibuprofen, or something else. Right Jaw Pain Score (Numeric/FACES): 7 - Related Data Allergies Allergy/AdvReac Type Severity Reaction Status Date / Time aspirin Allergy Paralysis Verified 10/10/19 04:44 Home Meds: Home Meds Amoxicillin 500 mg PO Q8H #30 tablet 10/05/19 [Rx] Past Medical History Musculoskeletal History: Reports: Fracture (right tib/fib) Psychiatric History: Reports: Schizophrenia (untreated) - Past Surgical History HEENT Surgical History: Reports: Tonsillectomy Musculoskeletal Surgical History: Reports: ORIF (right tib/fib) Social & Family History - Family History Family Medical History: Noncontributory - Tobacco Use Smoking Status *Q: Current Every Day Smoker Years of Tobacco use: 31 Packs/Tins Daily: 0.5 Packs/Tins Daily Comment: Down from 1 ppd - Caffeine Use Caffeine Use: Reports: Soda Other Caffeine Use: seldom - Alcohol Use Alcohol Use History: Yes Alcohol Use Frequency: Rarely - Recreational Drug Use Recreational Drug Use: Yes Drug Use in Last 12 Months: No Recreational Drug Type: Reports: Marijuana/Hashish (last smoked around 2001?), Methamphetamine (last smoked around 2003?) - Living Situation & Occupation Living situation: Reports: Single, Other (Homeless - sleeps at the group home) Occupation: Unemployed ED ROS ENT - Review of Systems Review Of Systems: Comprehensive ROS is negative, except as noted in HPI. ED EXAM, ENT - Physical Exam Exam: Not Obtained Reason Not Obtained: Patient refused an examination Course - Vital Signs Last Recorded V/S: Last Vital Signs Temp 37.2 C 10/10/19 04:44 Pulse 90 10/10/19 04:44 Resp 19 10/10/19 04:44 BP 164/94 H 10/10/19 04:44 Pulse Ox 99 10/10/19 04:44 - Re-Assessments/Exams Free Text/Narrative Re-Assessment/Exam: 10/10/19 04:53 As above, the patient returned to the ED for continued right facial pain associated with an upper right molar infection. He is requesting pain medication, either more ibuprofen, which I declined, since he is already taking it in excess of what is recommended, and he already has access to it, since it is available [id number], or some other pain medication. Given his history of schizophrenia, I do not believe it would be appropriate to prescribe an opioid. The patient was argumentative and did not allow me to examine him. I will therefore discharge him home again, with the same recommendations as earlier agustin, that he follow-up with a dentist at the next available appointment. Departure - Departure Time of Disposition: 04:50 Disposition: Home, Self-Care 01 Condition: Good Clinical Impression: Dental infection - Discharge Information *PRESCRIPTION DRUG MONITORING PROGRAM REVIEWED*: Not Applicable *COPY OF PRESCRIPTION DRUG MONITORING REPORT IN PATIENT MARISSA: Not Applicable Instructions: Dental Abscess, [id number] Referrals: PCP,None [Primary Care Provider] - Forms: ED Department Discharge Additional Instructions: You were seen in the emergency room for continued pain associated with an upper right dental infection, with the pain extending to the right side of your face and neck. You did not permit examination. We recommend that you continue to take the amoxicillin that was prescribed to you on 10/05/2019. We recommend that you limit your ibuprofen intake to no more than 3 tablets ( 600 mg) every 8 hours, with food. We strongly recommend that you follow-up with a dentist at the next available appointment. If any other problems, please do not hesitate to return to the ER. Sepsis Event Note - Evaluation Sepsis Screening Result: No Definite Risk - Focused Exam Vital Signs: Vital Signs Temp Pulse Resp BP Pulse Ox 10/10/19 04:44 37.2 C 90 19 164/94 H 99 Date Exam was Performed: 10/10/19 Time Exam was Performed: 06:26
== END 2019-10-10 05:04 | disposition home or self-care (01) ==
LOC: JD.ED 04:43
DX: K04.7 Periapical abscess without sinus (principal); F17.210 Nicotine dependence, cigarettes, uncomplicated; Z88.8 Allergy status to other drugs, medicaments and biological substances
CPT/HCPCS: 99283

== ENCOUNTER 2019-10-10 19:24 | Emergency (ER) | payer SELFPAY ==
[2019-10-10 19:34] VITALS: PULSE 88
[2019-10-10] MEDS ORDERED: Penicillin V Potassium 500 MG Tab PO STA (20:02)
--- NOTE | 2019-10-10 20:11 | EDM.PDOC ---
ED HPI GENERAL MEDICAL PROBLEM - General Chief Complaint: ENT Problem Stated Complaint: NUMBNESS IN FACE Time Seen by Provider: 10/10/19 19:45 Source of Information: Reports: Patient History Limitations: Reports: No Limitations - History of Present Illness INITIAL COMMENTS - FREE TEXT/NARRATIVE: Mr. Van is a 43-year-old man with a past medical history significant for untreated schizophrenia. He has been evaluated in this ED on numerous occasions , usually for the same complaint of his neck popping when he turns his head. Sometimes he feels it on the left, sometimes on the right. Medical records indicate that he was seen in this ED most recently for that complaint on 2019, and diagnosed with TMJ. He was then seen again in this ED on 10/05/2019, this time complaining of upper right dental pain. He was prescribed amoxicillin , and instructed to take [id number] ibuprofen and follow-up with a dentist. The patient then returned to this ED the evening of , 10/09/2019, complaining of continued upper right dental pain, but stating that the pain extended to most of the right side of his face and back to the right side of his neck. He reported that he already "burned through" 50 ibuprofen since 2019. He was vague about whether or not he was taking the antibiotic that was prescribed. He reported that he would be able to make an appointment to see a dentist sometime on 10/10/2019. He was evasive, with tangential and delusional thinking, and he was argumentative. He allowed only a brief evaluation of his mouth before turning his head away, however, he had an obvious upper right dental infection, along with numerous missing teeth. There was no submandibular lymphadenopathy, however, he did not allow examination of his neck. He was discharged home with the recommendation that he continue to take the antibiotic that was already prescribed, judicious ibuprofen, then follow-up with a dentist at the next available appointment. The patient left the ED without waiting for his discharge instructions. The patient then returned to the ED this morning, 10/10/2019, stating that he took 1.5 tablets of ibuprofen, slept for a few hours, then woke up in some sort of a mental fog. He stated that he had walked around for about an hour before deciding that he needed to return to the ED because his symptoms were in someway different. He was again argumentative with delusional and tangential thinking. He did not allow an examination. He requested pain medication, which was declined, and he was discharged home with the same advice as before. The patient now returns to the ED with the same complaints. Here in the ED, the patient is found to be hemodynamically stable, afebrile, saturating 95% on room air. He is more calm than on his previous 2 visits. The patient does not have a PCP. Face/Facial Pain Score (Numeric/FACES): 9 - Related Data Allergies Allergy/AdvReac Type Severity Reaction Status Date / Time aspirin Allergy Paralysis Verified 10/10/19 19:34 Home Meds: Home Meds Amoxicillin 500 mg PO Q8H #30 tablet 10/05/19 [Rx] Past Medical History Musculoskeletal History: Reports: Fracture (right tib/fib) Psychiatric History: Reports: Schizophrenia (untreated) - Past Surgical History HEENT Surgical History: Reports: Tonsillectomy Musculoskeletal Surgical History: Reports: ORIF (right tib/fib) Social & Family History - Family History Family Medical History: Noncontributory - Tobacco Use Smoking Status *Q: Current Every Day Smoker Years of Tobacco use: 31 Packs/Tins Daily: 0.5 Packs/Tins Daily Comment: Down from 1 ppd - Caffeine Use Caffeine Use: Reports: Coffee, Energy Drinks Other Caffeine Use: seldom - Alcohol Use Alcohol Use History: Yes Alcohol Use Frequency: Rarely - Recreational Drug Use Recreational Drug Use: Yes Drug Use in Last 12 Months: No Recreational Drug Type: Reports: Marijuana/Hashish (last smoked around 2001?), Methamphetamine (last smoked around 2003?) - Living Situation & Occupation Living situation: Reports: Single, Other (Homeless - sleeps at the senior care) Occupation: Unemployed ED ROS ENT - Review of Systems Review Of Systems: Comprehensive ROS is negative, except as noted in HPI. ED EXAM, ENT - Physical Exam Exam: See Below Exam Limited By: No Limitations General Appearance: Alert, WD/WN, No Apparent Distress Eye Exam: Bilateral Eye: EOMI, Normal Inspection Ears: Normal External Exam, Hearing Grossly Normal Nose: Normal Inspection Mouth/Throat: Other (Numerous teeth missing. Generally poor dentition. Upper right molar with advanced decay and gingival swelling. No obvious pointing seen.) Head: Atraumatic, Normocephalic Neck: Normal Inspection, Supple, Non-Tender, Full Range of Motion. No: Lymphadenopathy (L), Lymphadenopathy (R) Course - Vital Signs Last Recorded V/S: Last Vital Signs Temp 36.7 C 10/10/19 19:30 Pulse 88 10/10/19 19:30 Resp 16 10/10/19 19:30 BP Pulse Ox 95 10/10/19 19:30 - Orders/Labs/Meds Orders: Active Orders 24 hr Category Date Time Status Sodium Chloride 0.9% [Normal Saline] 1,000 ml Med 10/10/19 20:15 Active IV ASDIRECTED Sodium Chloride 0.9% [Saline Flush] Med 10/10/19 20:25 Active 10 ml FLUSH ONETIME PRN Medication Orders Sodium Chloride (Normal Saline) 1,000 mls @ 150 mls/hr IV ASDIRECTED [place] Last Admin: 10/10/19 20:13 Dose: 150 mls/hr Sodium Chloride (Saline Flush) 10 ml FLUSH ONETIME PRN PRN Reason: KEEP VEIN OPEN Labs: Laboratory Tests 10/10/19 10/10/19 Range/Units 20:10 20:10 WBC 12.93 H (4.23-9.07) K/mm3 RBC 5.71 (4.63-6.08) M/mm3 Hgb 16.9 (13.7-17.5) gm/dl Hct 51.1 H (40.1-51.0) % MCV 89.5 (79.0-92.2) fl MCH 29.6 (25.7-32.2) pg MCHC 33.1 (32.2-35.5) g/dl RDW Std Deviation 46.2 H (35.1-43.9) fL Plt Count 293 (163-337) K/mm3 MPV 10.0 (9.4-12.3) fl Neutrophils % (Manual) 78 H (40-60) % Band Neutrophils % 0 (0-10) % Lymphocytes % (Manual) 16 L (20-40) % Atypical Lymphs % 0 % Monocytes % (Manual) 6 (2-10) % Eosinophils % (Manual) 0 L (0.8-7.0) % Basophils % (Manual) 0 L (0.2-1.2) Platelet Estimate Adequate RBC Morph Comment Normal Sodium 142 (136-145) mEq/L Potassium 3.9 (3.5-5.1) mEq/L Chloride 103 (98-107) mEq/L Carbon Dioxide 26 (21-32) mEq/L Anion Gap 16.9 H (5-15) BUN 14 (7-18) mg/dL Creatinine 0.9 (0.7-1.3) mg/dL Est Cr Clr Drug Dosing 120.05 mL/min Estimated GFR (MDRD) > 60 (>60) mL/min BUN/Creatinine Ratio 15.6 (14-18) Glucose 127 H (74-106) mg/dL Calcium 9.0 (8.5-10.1) mg/dL Total Bilirubin 0.5 (0.2-1.0) mg/dL AST 20 (15-37) U/L ALT 24 (16-63) U/L Alkaline Phosphatase 99 (46-116) U/L Total Protein 7.3 (6.4-8.2) g/dl Albumin 3.8 (3.4-5.0) g/dl Globulin 3.5 gm/dL Albumin/Globulin Ratio 1.1 (1-2) Meds: Medications Generic Name Dose Route Start Last Admin Trade Name Freq PRN Reason Stop Dose Admin Sodium Chloride 1,000 mls @ 150 mls/hr 10/10/19 20:15 10/10/19 20:13 Normal Saline IV 150 mls/hr ASDIRECTED [place] Administration Sodium Chloride 10 ml 10/10/19 20:25 Saline Flush FLUSH ONETIME PRN KEEP VEIN OPEN Discontinued Medications Generic Name Dose Route Start Last Admin Trade Name Freq PRN Reason Stop Dose Admin Iopamidol 50 ml 10/10/19 20:25 Isovue-300 (61%) IVPUSH 10/10/19 20:26 ONETIME ONE Penicillin V Potassium 500 mg 10/10/19 20:02 10/10/19 20:13 Veetids PO 10/10/19 20:03 500 mg ONETIME STA Administration - Re-Assessments/Exams Free Text/Narrative Re-Assessment/Exam: 10/10/19 20:05 There are several reasons why we do not want to have Mr. Blanco continue to return to the ED unnecessarily. Under the current circumstances, healthcare resources and personal need to be able to focus on the sickest patients, and not be squandered on non-essential or non-emergency patients. Additionally, every time the patient walks into the ED, he is putting himself at risk for acquiring COVID-19 if he is not infected, and other patients and staff if he is. For this reason, I had a gabriela conversation with the patient with respect to what it would take to notify him that we have done all that we can, so that he does not keep coming back. We struck the agreement that we will draw some blood, acquire a CT scan of his face and neck, start him on penicillin, then discharge him home with a CD-ROM of his CT images and an [facility] prescription for penicillin that Matt FERGUSON will get filled for free under compassionate care. We went over these details several times, and the patient has assured me that that will satisfy him. So ordered. 10/10/19 20:37 Notified by the sales service technician that the patient received the IV contrast, but before the CT scan was actually performed, and he "freaked out" and changed his mind, decided that he did not want the CT scan. He is back in his room. 10/10/19 21:29 Test results discussed with the patient. His CBC is remarkable for WBC count mildly elevated at 12.93, but with 0% bandemia. His Hgb is mildly elevated at 51.1, with the remainder of his CBC being unremarkable. His CMP is remarkable for an anion gap slightly elevated at 16.9, but with a bicarbonate normal at 26. His blood glucose is mildly elevated at 127, with the remainder of his CMP being unremarkable. The patient has been given his first dose of penicillin. I will discharge him home, and his nurse will help him with the [facility] prescription. He is to begin taking 1 tablet every 6 hours. He will follow-up with his social services counselor on 10/13/2019, to try to arrange to see a dentist. He inquired about whether or not it would be beneficial to go to [place], if his swelling got worse, and I agreed that yes, if he really did need drainage of the abscess, a maxillofacial surgeon could perform that instead of a dentist, and the closest maxillofacial surgeon is in [place]. I did not, however, encourage him to go to [place]. Departure - Departure Time of Disposition: 21:31 Disposition: Home, Self-Care 01 Condition: Good Clinical Impression: Dental infection - Discharge Information *PRESCRIPTION DRUG MONITORING PROGRAM REVIEWED*: Not Applicable *COPY OF PRESCRIPTION DRUG MONITORING REPORT IN PATIENT MARISSA: Not Applicable Referrals: PCP,None [Primary Care Provider] - Forms: ED Department Discharge Additional Instructions: You were seen in the emergency room for continued right sided facial pain related to an upper right dental infection. Work-up in the ER included blood work and a CT scan of your face and neck, however, due to anxiety, the CT scan was not completed. Your blood work was unremarkable. You have been started on the antibiotic penicillin, and a prescription for penicillin has been provided to you. Take 1 tablet of penicillin every 6 hours , starting around 3:00 tomorrow morning, 10/11/2019, as prescribed. Finish the entire prescription unless told otherwise by a dentist. Follow-up with your social services counselor this coming 10/13/2019, to try to arrange to see a dentist as soon as possible. As discussed, the ultimate treatment of this infection is drainage, not antibiotics. As discussed, you may take [id number]-[id number] ibuprofen, 3 tablets (600 mg) 2 every 8 hours, with food, as needed for discomfort. If any other problems, please do not hesitate to return to the ER. Sepsis Event Note - Evaluation Sepsis Screening Result: No Definite Risk - Focused Exam Vital Signs: Vital Signs Temp Pulse Resp Pulse Ox 10/10/19 19:30 36.7 C 88 16 95 Date Exam was Performed: 10/10/19 Time Exam was Performed: 21:29 - My Orders Last 24 Hours: My Active Orders 10/10/19 20:15 Sodium Chloride 0.9% [Normal Saline] 1,000 ml IV ASDIRECTED 10/10/19 20:25 Sodium Chloride 0.9% [Saline Flush] 10 ml FLUSH ONETIME PRN - Assessment/Plan Last 24 Hours: My Active Orders 10/10/19 20:15 Sodium Chloride 0.9% [Normal Saline] 1,000 ml IV ASDIRECTED 10/10/19 20:25 Sodium Chloride 0.9% [Saline Flush] 10 ml FLUSH ONETIME PRN
[2019-10-10] MEDS ORDERED: Sodium Chloride 0.9% 1,000 ML IV SCH (20:15)
[2019-10-10] MEDS ORDERED: Sodium Chloride 0.9% 10 ML Syringe FLUSH PRN (20:25)
[2019-10-10] MEDS ORDERED: Iopamidol 612 MG/ML 50 ML SDV IVPUSH ONE (20:25)
== END 2019-10-10 21:48 | disposition home or self-care (01) ==
LOC: JD.ED 19:24
DX: K04.7 Periapical abscess without sinus (principal); F17.210 Nicotine dependence, cigarettes, uncomplicated; Z88.6 Allergy status to analgesic agent
CPT/HCPCS: 36415; 80053; 85007; 85027; 96360; 96361; 99283; A9270; J7030